=== PATIENT | male | born 1965 | race Caucasian/White ===

== ENCOUNTER 2017-09-06 03:26 | Emergency (ER) | payer SELFPAY ==
[~2017-09-06] VITALS: Ht 152.4 cm; Wt 68.0 kg
[2017-09-06] MEDS ORDERED: ALBUTEROL SULFATE 2.5 MG/3 ML NEBU NEB ONE (04:15)
[2017-09-06] MEDS ORDERED: LEVOFLOXACIN 750MG/D5W 150 ML IV ONE (04:15)
[2017-09-06] MEDS ORDERED: ACETAMINOPHEN 650 MG SUPP.RECT RC ONE (04:15)
[2017-09-06] MEDS ORDERED: MEROPENEM 1 G in IV NORMAL SALINE 100 ML IV ONE (04:15)
[2017-09-06] MEDS ORDERED: FUROSEMIDE 20 MG TABLET PO ONE (04:30)
[2017-09-06 04:36] VITALS: BP 15/60
[2017-09-06 05:37] LABS: BASOPHILS % (AUTO) 0.3 % (0.0-2.0); EOSINOPHILS % (AUTO) 0.2 % (0.0-7.0); HEMATOCRIT 42.9 % (36.7-47.1); HEMOGLOBIN 15.1 g/dL (12.5-16.3); LYMPHOCYTES # (AUTO) 1.3 K/uL (20.0-40.0); MEAN CORPUSCULAR HEMOGLOBIN 33.2 uug (23.8-33.4); MEAN CORPUSCULAR HGB CONC 35 g/dL (32.5-36.3); MEAN CORPUSCULAR VOLUME 93.9 fL (73.0-96.2); MONOCYTES # (AUTO) 0.7 K/uL (2.0-10.0); MONOCYTES % (AUTO) 6.2 % (0.0-11.0); NEUTROPHILS # (AUTO) 8.9 K/uL (1.8-8.9); NEUTROPHILS % (AUTO) 81.3 % (38.5-71.5); PLATELET COUNT (AUTO) 187 K/uL (152-348); RED BLOOD CELL COUNT(AUTO) 4.56 MIL/uL (4.06-5.63); WHITE BLOOD COUNT (AUTO) 10.9 K/uL (3.6-10.2)
== END 2017-09-06 05:18 | disposition home or self-care (01) ==
LOC: ER 05:17
DX: R07.9 Chest pain, unspecified (principal); J42 Unspecified chronic bronchitis; Z88.8 Allergy status to other drugs, medicaments and biological substances; Z79.2 Long term (current) use of antibiotics; Z79.899 Other long term (current) drug therapy
CPT/HCPCS: 36415; 70030-TC; 85025; A4663; J2185; J3490

== ENCOUNTER → 2018-11-16 03:45 | Emergency (ER) | payer SELFPAY ==
[~2018-11-16] VITALS: Ht 180.3 cm; Wt 81.6 kg
[~2018-11-16 03:45] MED LIST: IV NORMAL SALINE 1000 ML BAG IV ONE; METOCLOPRAMIDE HCL 10 MG/2 ML VIAL IV ONE; MORPHINE SULFATE 2 MG/1 ML DISP.SYRIN IV ONE
[2018-11-16 07:14] LABS: *BILIRUBIN,URIN NEGATIVE (NEGATIVE); *BLOOD, URINE NEGATIVE (NEGATIVE); *CLARITY,URINE CLEAR (CLEAR); *COLOR,URINE YELLOW (YELLOW); *KETONES,URINE NEGATIVE (NEGATIVE); *UROBILINOGEN,URINE 0.2 E.U./dl (NORMAL); LEUKOCYTE ESTERASE ,URINE NEGATIVE (NEGATIVE); NITRITE, URINE NEGATIVE (NEGATIVE); UGLUCOSE NEGATIVE (NEGATIVE)
== END | disposition home or self-care (01) ==
LOC: CANPREER → ER 03:45
DX: Z75.3 Unavailability and inaccessibility of health-care facilities (principal)